=== PATIENT | male | born 1935 | race Caucasian/White ===

== ENCOUNTER → 2017-02-01 | Outpatient (CLI) | payer MEDICARE ==
--- NOTE | ~2017-02-01 | CT113 ---
[facility] A Service of [facility] RADIOLOGY TEXT RESULTS PATIENT: LB LIMA LOCATION: [facility] : 39 UNIT #: [id number] AGE: [address]: Karan Harmon MD SEX: M ORDER DR: [id number] [facility] [address] [place], [place] [address] [id number] O MR#: [id number] Acc #: [id number] NAME: LB LIMA : 1935 SEX: M STUDY DATE/TIME: 02/01/2017 13:48 UNIT: [facility] ROOM: STUDY DESCRIPTION: CT Sinuses Wo Contrast Attending Physician: Karan Harmon M.D. Referring Physician: Karan Harmon M.D. Ordering Physician: Karan Harmon M.D. Primary Care Physician: Primary Care Physician No MEDICAL IMAGING REPORT This report is preliminary unless electronic signature is present EXAM Sinus CT no contrast, 02/01/2017 PROCEDURE Axial unenhanced sinus CT with multiplanar reformats. This CT exam was performed with one or more of the following radiation dose reduction techniques: automatic exposure control, adjustment of mA and/or kV according to patient size, and iterative reconstruction. COMPARISON None CLINICAL HISTORY 3-4 year history of chronic sinusitis. FINDINGS The adjacent intra and extracranial soft tissues are unremarkable. No fluid levels or bone erosion or destruction are seen. The frontal sinuses are normally pneumatized. There is slight right frontal sinus mucosal thickening. The ethmoid air cells are normally pneumatized and there is mild scattered bilateral ethmoid mucosal thickening. The sphenoid chambers are normally pneumatized and codominant. There is slight left sphenoid chamber mucosal thickening. The maxillary sinuses are normally pneumatized. There is mild left maxillary mucosal thickening but the left infundibulum is patent. The right infundibulum is narrowed and possibly occluded with moderate right maxillary mucosal thickening though no fluid level or bone erosion or STS. [facility] A Service [facility] RADIOLOGY TEXT RESULTS PATIENT: LB LIMA [facility] [id number] : 37 UNIT #: [id number] AGE: [address]: Karan Harmon MD SEX: M ORDER DR: destruction is seen on either side. There is some right maxillary slight bony thickening. The nasal septum deviates rightward but is intact. There is partial paradoxical rotation of the anterior portions of both middle turbinates. IMPRESSION Scattered sinus mucosal thickening as above. No air-fluid level. No bone erosion or destruction. Dictated by... Xander Latif M.D. THIS IS AN ELECTRONICALLY VERIFIED REPORT Xander Latif M.D. at 02/02/2017 5:19 PM EDUARD/lincoln TD: 02/02/2017 13:46 JOB #: [id number] MEDICAL IMAGING REPORT Page 1 of 1 COPY
== END | disposition home or self-care (01) ==
LOC: CCAT 13:01
DX: J32.9 Chronic sinusitis, unspecified (principal); J34.89 Other specified disorders of nose and nasal sinuses
CPT/HCPCS: 70486